=== PATIENT | male | born 1965 | race African-American/Black ===

== ENCOUNTER 2017-01-10 10:45 | Emergency (ER) | payer OTHER ==
[~2017-01-10] VITALS: Ht 190.5 cm; Wt 72.6 kg
[2017-01-10 11:30] VITALS: BP 102/66
== END 2017-01-10 11:31 | disposition home or self-care (01) ==
LOC: ER 10:45
DX: S80.812A Abrasion, left lower leg, initial encounter (principal); F17.210 Nicotine dependence, cigarettes, uncomplicated; X58.XXXA Exposure to other specified factors, initial encounter; Y93.89 Activity, other specified; Y92.89 Other specified places as the place of occurrence of the external cause; Y99.8 Other external cause status